=== PATIENT | female | born 1995 | race Hispanic/Latino ===

== ENCOUNTER 2017-09-24 11:52 | Inpatient (IN) | payer SELFPAY ==
[2017-09-24] MEDS ORDERED: Gentamicin Sulfate 80 MG in Premix Bag 1 BAG IVPB ONE (12:30)
[2017-09-24 12:47] LABS: Hematocrit 36.8 % (36.0-47.0); Mean Platelet Volume 6.4 fL (7.4-10.4); Red Blood Cell (RBC) Count 3.96 mill/uL (4.20-5.40); White Blood Cell (WBC) Count 21.1 thou/uL (4.8-10.8)
[2017-09-24 12:53] LABS: PTT 31.5 SEC (22.9-36.1)
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
--- NOTE | 2017-09-24 13:00 | RAD ---
2 VIEWS RIGHT FOREARM: Date: 09/24/17 PROVIDED CLINICAL HISTORY: Right forearm injury. FINDINGS: Comparison is made with the examination performed earlier same date at [facility]. Markedly comminuted and displaced fractures of the distal radius and ulna, as well as fracture involv ing the fourth metacarpal are again demonstrated. Soft tissue radiodensities and soft tissue gas are noted, which may reflect foreign bodies and laceration respectively. IMPRESSION: As above. POS: [facility]
[2017-09-24] MEDS ORDERED: Fentanyl 100 MCG/2 ML VIAL ONE ×3 (13:01→16:19)
[2017-09-24 13:03] LABS: ALT (SGPT) 20 U/L (8-55); AST (SGOT) 20 U/L (5-34); Alkaline Phosphatase 60 U/L (40-150); Anion Gap 12 mmol/L (10-20); BUN (Urea Nitrogen) 7 mg/dL (7.0-18.7); Bilirubin, Total 0.5 mg/dL (0.2-1.2); Calc. Creatinine Clearance 0 mL/min (70-130); Carbon Dioxide 23 mmol/L (22-29); Chloride 106 mmol/L (98-107); Estimated GFR-MDRD Greater than 90; Globulin 3.1 g/dL (2.4-3.5); Lipase 13 U/L (8-78); Protein, Total 7.1 g/dL (6.0-8.3)
[2017-09-24] MEDS ORDERED: Dexamethasone 20 MG/5 ML VIAL ONE (13:04)
[2017-09-24] MEDS ORDERED: Lidocaine 2% PF 10 ML AMP (For Epidural Use) ONE (13:04)
[2017-09-24] MEDS ORDERED: Ondansetron HCl/PF 4 MG/2 ML Vial ONE (13:04)
[2017-09-24] MEDS ORDERED: Propofol 200 MG/20 ML VIAL ONE (13:04)
[2017-09-24] MEDS ORDERED: Ketorolac Tromethamine 30 MG/ML VIAL ONE (13:04)
[2017-09-24] MEDS ORDERED: Succinylcholine Chloride 20 MG/ML 10 ml SYRINGE FS ONE (13:04)
[2017-09-24 13:13] LABS: Band 11 % (5-11); Neutrophil 66 % (42-75); Polychromasia SLIGHT = 2-3 cells (100X) (0-2/hpf); Reactive Lymphocytes 3 % (0-10)
[2017-09-24] MEDS ORDERED: Neomycin-Polymyxin 1 ML AMP ONE (13:26)
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
[2017-09-24] MEDS ORDERED: ISOVUE-370 76%-LOCM 1 ML ONE (14:42)
[2017-09-24] MEDS ORDERED: Promethazine HCl 25 MG/ML VIAL IM PRN ×2 (15:49→20:10)
[2017-09-24] MEDS ORDERED: Promethazine HCl 25 MG/ML VIAL SLOW IVP PRN (15:49)
[2017-09-24] MEDS ORDERED: Ondansetron HCl/PF 4 MG/2 ML Vial IVP PRN ×3 (15:49→20:10)
--- NOTE | 2017-09-24 16:32 | RAD ---
RIGHT HAND 3 VIEWS: Date: 09/24/17 HISTORY: Intraoperative films. COMPARISON: Exam done earlier today. FINDINGS: There has been pin placement related to the metacarpal fractures and an external fixation device is p artially visualized on this exam in the distal radius and ulna. The comminuted distal radial and ulna r fractures are partially visualized. IMPRESSION: Postoperative changes of the hand and forearm. POS: [facility]
--- NOTE | 2017-09-24 16:32 | RAD ---
RIGHT FOREARM 2 VIEWS: Date: 09/24/17 HISTORY: Intraoperative films FINDINGS: These show an external fixation device being placed across the comminuted distal radial and ulnar fra ctures. IMPRESSION: Comminuted distal radial and ulnar fractures with external fixator. POS: [facility]
[2017-09-24] MEDS ORDERED: Dextrose 50% Abboject 50 ML SYRINGE SLOW IVP PRN (17:04)
[2017-09-24] MEDS ORDERED: Morphine 4 MG/ML VIAL SLOW IVP PRN (17:04)
[2017-09-24] MEDS ORDERED: hydrALAZINE 20 MG/ML VIAL SLOW IVP PRN (17:04)
[2017-09-24] MEDS ORDERED: Dextrose 5% in Water 1,000 ML IV PRN (17:04)
[2017-09-24] MEDS ORDERED: traMADol HCl 50 MG TAB PO PRN ×2 (17:04)
[2017-09-24] MEDS ORDERED: Ondansetron ODT 4 MG TAB PO PRN (17:04)
--- NOTE | 2017-09-24 17:19 | OP ---
DATE OF OPERATION: 09/24/2017 PREOPERATIVE DIAGNOSES: 1. Severely comminuted open distal right radius and ulna shaft fractures. 2. Open wound in the palm of the right hand with laceration through the thenar muscles. 3. Open dislocation of the first carpometacarpal joint. 4. Open fracture dislocation of the second carpometacarpal joint. 5. Fracture of the mid shaft of the fourth metacarpal. POSTOPERATIVE DIAGNOSES: 1. Severely comminuted open distal right radius and ulna shaft fractures. 2. Open wound in the palm of the right hand with laceration through the thenar muscles. 3. Open dislocation of the first carpometacarpal joint. 4. Open fracture dislocation of the second carpometacarpal joint. 5. Fracture of the mid shaft of the fourth metacarpal. PROCEDURES: 1. Irrigation and debridement of the right forearm and hand. 2. External fixation of the right distal radius and ulna. 3. Open reduction and pinning of the first carpometacarpal joint. 4. Open reduction and pinning of a fracture dislocation of second carpometacarpal joint. 5. Percutaneous pinning of the mid shaft fracture of the fourth metacarpal. SURGEON: Patrick Dias M.D. ANESTHESIA: General. TECHNIQUE: The patient was given preoperative IV antibiotics, taken to the operating room and placed in the supine position. Satisfactory general anesthesia was performed. The right hand and forearm were sterilely prepped and draped in the usual fashion. After exsanguination, the tourniquet at the right arm was raised to 250 mmHg. The patient had a significant soft tissue injury with laceration o maicol the dorsum of the right distal forearm, which was contaminated with dirt and small pieces of rock . This wound was copiously irrigated with antibiotic solution using the high speed capacitor inspector. The w ound in the palmar aspect of the hand had extended just radial to the midline of the palm and went th rough the thenar muscles down to the base of the index finger and then across the distal aspect of th e palm to the little finger. This wound was also copiously irrigated with the high speed capacitor inspector. After the irrigation and debridement was performed, a small external fixator was applied first to th e radius using 2 pins in the distal radius, 2 pins in the proximal radial shaft and with 1 bar and th en 1 pin was placed in the proximal and distal to all the fractures on the ulna with a small bar as w ell. The first carpometacarpal joint was copiously irrigated. It was reduced and then pinned using 0.045 K wires. Two wires were used same fashion after cleaning up the second carpometacarpal joint. It was reduced and then a two 0.045 K-wires were used to pin it. The mid shaft fracture of the four th metacarpal was reduced through a small incision and one 0.045 K-wire was used for it. The pins we re cut left protruding through the skin and was covered with Jurgan balls. The lacerations were loos arabella closed using 0 and #1 Prolene in interrupted simple and vertical mattress sutures. The skin was very loosely closed to allow for drainage both on the forearm and on the hand. A sterile bulky dress ing was then applied along with an Orthoglass splint to stabilize the hand, wrist, and forearm. The tourniquet was released prior to closure and after the dressing was applied, the patient was awakened , extubated, and transferred to recovery room in stable condition. ESTIMATED BLOOD LOSS: 100 mL COMPLICATIONS: None. TOURNIQUET TIME: 98 minutes.
[2017-09-24] MEDS: Acetaminophen 500 MG TAB PO SCH ×2 (17:27→18:31)
[2017-09-24] MEDS: Sodium Chloride 0.9% 1,000 ML IV SCH ×2 (17:37→20:00)
[2017-09-24 18:03] VITALS: BMI 28.3
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
[2017-09-24] MEDS ORDERED: Fentanyl 100 MCG/2 ML VIAL SLOW IVP SCH (20:00)
[2017-09-24] MEDS: Famotidine 20 MG TAB PO SCH (20:03)
[2017-09-24] MEDS ORDERED: Zolpidem Tartrate 5 MG TAB PO PRN (20:10)
[2017-09-24] MEDS ORDERED: Fentanyl 5000 MCG/250 ML CADD IVPB PRN (20:10)
[2017-09-24] MEDS ORDERED: Naloxone HCl 0.4 mg/ml Vial IV PRN (20:10)
[2017-09-24] MEDS ORDERED: diphenhydrAMINE 25 MG CAP PO PRN (20:10)
[2017-09-24] MEDS ORDERED: Ketorolac Tromethamine 30 MG/ML VIAL IVP PRN (20:10)
[2017-09-24] MEDS ORDERED: diphenhydrAMINE 50 MG/ML VIAL IVP PRN (20:10)
[2017-09-24] MEDS ORDERED: diphenhydrAMINE 50 MG/ML VIAL IM PRN (20:10)
[2017-09-24] MEDS ORDERED: Communication Order-Pharmacy FS SCH (20:15)
[2017-09-24] MEDS: CEFAZOLIN 1 GM, Syringe 2.5 ML in Sterile Water 7.5 ML SLOW IVP SCH (21:42)
[2017-09-24] MEDS: Ketorolac Tromethamine 30 MG/ML VIAL IVP SCH (21:43)
[2017-09-24] MEDS: Gentamicin 80 MG/2 ML VIAL IM SCH (21:50)
[2017-09-24] MEDS ORDERED: CEFAZOLIN 1 GM in Sodium Chloride 0.9% 100 ML IVPB SCH (22:00)
[2017-09-25] MEDS: Acetaminophen 500 MG TAB PO SCH ×4 (00:49→17:42)
[2017-09-25] MEDS: Ketorolac Tromethamine 30 MG/ML VIAL IVP SCH ×4 (04:01→21:13)
[2017-09-25] MEDS: Sodium Chloride 0.9% 1,000 ML IV SCH ×3 (04:08→21:10)
[2017-09-25 05:17] LABS: #Lymphocytes 1.7 thou/uL (1.20-3.40); #Monocytes 1.3 thou/uL (0.11-0.59); #Neutrophils 15.8 thou/uL (1.40-6.50); %Basophils 0.1 % (0.0-1.0); %Lymphocytes 8.9 % (21.0-51.0); %Monocytes 6.9 % (0.0-10.0); Hematocrit 29.5 % (36.0-47.0); Mean Platelet Volume 6.1 fL (7.4-10.4); Red Blood Cell (RBC) Count 3.17 mill/uL (4.20-5.40); White Blood Cell (WBC) Count 18.9 thou/uL (4.8-10.8)
[2017-09-25 05:29] LABS: Anion Gap 11 mmol/L (10-20); BUN (Urea Nitrogen) 4 mg/dL (7.0-18.7); Calc. Creatinine Clearance 184 mL/min (70-130); Calcium 8.1 mg/dL (7.8-10.44); Carbon Dioxide 23 mmol/L (22-29); Chloride 105 mmol/L (98-107); Estimated GFR-MDRD Greater than 90
[2017-09-25] MEDS: Gentamicin 80 MG/2 ML VIAL IM SCH ×3 (05:42→21:17)
[2017-09-25] MEDS: CEFAZOLIN 1 GM, Syringe 2.5 ML in Sterile Water 7.5 ML SLOW IVP SCH ×3 (05:42→18:37)
[2017-09-25] MEDS: Famotidine 20 MG TAB PO SCH ×2 (08:53→21:12)
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
[2017-09-26] MEDS: Acetaminophen 500 MG TAB PO SCH ×6 (02:57→23:35)
[2017-09-26] MEDS: CEFAZOLIN 1 GM, Syringe 2.5 ML in Sterile Water 7.5 ML SLOW IVP SCH ×3 (03:09→17:58)
[2017-09-26] MEDS: Ketorolac Tromethamine 30 MG/ML VIAL IVP SCH (03:15)
[2017-09-26] MEDS: Gentamicin 80 MG/2 ML VIAL IM SCH ×3 (05:32→22:26)
[2017-09-26] MEDS: Famotidine 20 MG TAB PO SCH ×2 (09:02→22:25)
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
[2017-09-26] MEDS ORDERED: Midazolam HCl 2 mg/2 ml Vial ONE (16:14)
[2017-09-26] MEDS ORDERED: Fentanyl 250 MCG/5 ML VIAL ONE (16:14)
[2017-09-26] MEDS ORDERED: Neomycin-Polymyxin 1 ML AMP ONE (16:22)
[2017-09-26] MEDS ORDERED: Propofol 200 MG/20 ML VIAL ONE (17:06)
[2017-09-26] MEDS ORDERED: Lidocaine 2% PF 10 ML AMP (For Epidural Use) ONE (17:06)
[2017-09-26] MEDS ORDERED: PHENYLEPHRINE-NS 100 MCG/ML 10 ML SYRINGE ONE (17:06)
[2017-09-26] MEDS ORDERED: Ondansetron HCl/PF 4 MG/2 ML Vial ONE (17:06)
[2017-09-26] MEDS ORDERED: Promethazine HCl 25 MG/ML VIAL SLOW IVP PRN (20:47)
[2017-09-26] MEDS ORDERED: HYDROmorphone 2 MG/ML VIAL SLOW IVP PRN (20:47)
[2017-09-26] MEDS ORDERED: Promethazine HCl 25 MG/ML VIAL IM PRN ×2 (20:47→21:15)
[2017-09-26] MEDS ORDERED: Ondansetron HCl/PF 4 MG/2 ML Vial IVP PRN ×2 (20:47→21:15)
[2017-09-26] MEDS ORDERED: Meperidine HCl/PF 25 MG/ML VIAL ONE (20:49)
[2017-09-26] MEDS ORDERED: Fentanyl 100 MCG/2 ML VIAL ONE ×3 (20:51→21:34)
[2017-09-26] MEDS ORDERED: Fentanyl 20 MCG/ML 250 ML ONE (21:11)
[2017-09-26] MEDS ORDERED: diphenhydrAMINE 50 MG/ML VIAL IVP PRN (21:15)
[2017-09-26] MEDS ORDERED: Zolpidem Tartrate 5 MG TAB PO PRN (21:15)
[2017-09-26] MEDS ORDERED: diphenhydrAMINE 25 MG CAP PO PRN (21:15)
[2017-09-26] MEDS ORDERED: diphenhydrAMINE 50 MG/ML VIAL IM PRN (21:15)
[2017-09-26] MEDS ORDERED: Communication Order-Pharmacy FS SCH (21:15)
[2017-09-26] MEDS ORDERED: Naloxone HCl 0.4 mg/ml Vial IV PRN (21:15)
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
[2017-09-27] MEDS: CEFAZOLIN 1 GM, Syringe 2.5 ML in Sterile Water 7.5 ML SLOW IVP SCH ×2 (02:43→09:42)
[2017-09-27] MEDS: Acetaminophen 500 MG TAB PO SCH ×2 (05:41→11:38)
[2017-09-27] MEDS: Gentamicin 80 MG/2 ML VIAL IM SCH (05:42)
[2017-09-27] MEDS ORDERED: traMADol HCl 50 MG TAB PO PRN ×2 (08:15)
[2017-09-27] MEDS ORDERED: Ibuprofen 800 MG TAB PO SCH (09:00)
[2017-09-27] MEDS: Famotidine 20 MG TAB PO SCH (09:42)
[2017-09-27] MEDS ORDERED: Senokot 8.6 MG TAB PO SCH (10:00)
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
[2017-09-27 13:13] VITALS: BP 137/80; TEMP 98.5
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
[2017-09-28] MEDS ORDERED: Polyethylene Glycol 3350 17 GM Packet PO SCH (09:00)
== END 2017-09-27 13:47 | disposition home or self-care (01) | DRG 496 ==
LOC: ERS 11:56 → SURG B 12:40 → SDC/OP 12:49 → SURG B 17:06
PROVIDERS: ADMIT Orthopaedic Surgery; ATTEND Orthopaedic Surgery
PROC: 0PSP04Z Reposition Right Metacarpal with Internal Fixation Device, Open Approach (ICD-10-PCS; 2017-09-24)
PROC: 0PHH05Z Insertion of External Fixation Device into Right Radius, Open Approach (ICD-10-PCS; 2017-09-24)
PROC: 0PHP34Z Insertion of Internal Fixation Device into Right Metacarpal, Percutaneous Approach (ICD-10-PCS; 2017-09-24)
PROC: 0PH Upper Bones, Insertion (ICD-10-PCS; 2017-09-24)
PROC: 0PSH04Z Reposition Right Radius with Internal Fixation Device, Open Approach (ICD-10-PCS; principal; 2017-09-26)
PROC: 0PSK04Z Reposition Right Ulna with Internal Fixation Device, Open Approach (ICD-10-PCS; 2017-09-26)
PROC: 0LQ50ZZ Repair Right Lower Arm and Wrist Tendon, Open Approach (ICD-10-PCS; 2017-09-26)
PROC: 0PP Upper Bones, Removal (ICD-10-PCS; 2017-09-26)
PROC: 0PP Upper Bones, Removal (ICD-10-PCS; 2017-09-26)
DX: S52.351B Displaced comminuted fracture of shaft of radius, right arm, initial encounter for open fracture type I or II (principal); S62.201B Unspecified fracture of first metacarpal bone, right hand, initial encounter for open fracture; S62.300B Unspecified fracture of second metacarpal bone, right hand, initial encounter for open fracture; S62.324B Displaced fracture of shaft of fourth metacarpal bone, right hand, initial encounter for open fracture; S62.201A Unspecified fracture of first metacarpal bone, right hand, initial encounter for closed fracture; S52.601B Unspecified fracture of lower end of right ulna, initial encounter for open fracture type I or II; S56.211A Strain of other flexor muscle, fascia and tendon at forearm level, right arm, initial encounter; V86.69XA Passenger of other special all-terrain or other off-road motor vehicle injured in nontraffic accident, initial encounter
CPT/HCPCS: 36415; 70450; 71010; 71260; 72125; 74177; 76001; 80048; 80307; 83690; 84703; 85025; 86850; 86900; 86901; 96374; A4216; C1713; C1768; G0390; G8978-GP-CH; G8979-GP-CH; G8980-GP-CH; G8987-GO-CJ; G8988-GO-CI; J0690; J1100; J1580; J1885; J2001; J2175; J2250; J2270; J2405; J2704; J3010